=== PATIENT | male | born 1990 | race Caucasian/White ===

== ENCOUNTER → 2016-12-05 | Outpatient (CLI) | payer OTHER ==
[~2016-12-05] MED LIST: OMEP40CA5 PO
--- NOTE | 2016-12-05 09:31 | RAD ---
Abdominal ultrasound, 12/05/2016: History: Abdominal pain The gallbladder is within normal limits in size. There is no sonographic evidence of cholelithiasis. Its rojas are at the upper limits of normal in thickness. No bile duct dilatation is seen. The visualized portions of liver, pancreas, spleen and both kidneys are unremarkable. The abdominal aorta and inferior vena cava show no abnormality. No free fluid is evident in the abdomen. IMPRESSION: No significant abnormality is detected.
== END | disposition home or self-care (01) ==
LOC: US 08:46
PROVIDERS: ATTEND Nurse Practitioner Family
DX: R10.9 Unspecified abdominal pain (principal)
CPT/HCPCS: 76700

== ENCOUNTER → 2016-12-18 | Outpatient (CLI) | payer OTHER ==
[~2016-12-18] MED LIST changes: +IOHEXOL 240 MG/ML 50ML VIAL. ONE; +IOHEXOL 300 MG/ML 75 ML VIAL. IV ONE
--- NOTE | 2016-12-18 12:24 | RAD ---
CT scan of the abdomen and pelvis with contrast 07/18/2016 Clinical history: Epigastric pain for several weeks. Technique: After the oral and intravenous administration of contrast, contiguous, 5 mm axial sections were obtained to the pelvis. 75 cc of Omnipaque 300 were administered intravenously during this examination. One or more of the following individualized dose reduction techniques were utilized for this study: 1. Automated exposure control. 2. Adjustment of the mA and/or kV according to patient size. 3. Use of iterative reconstruction technique. Findings: Comparison is made to the patient's ultrasound of the abdomen dated 12/03/2016. Images through the lung bases are within normal limits. The liver parenchyma has a decreased attenuation consistent with mild fatty infiltration. The spleen, pancreas, adrenal glands and kidneys are within normal limits. The abdominal aorta tapers normally. The gallbladder is well-distended. No free fluid or free air is seen within the abdomen. There is no evidence of bowel obstruction. The appendix is well visualized and is within normal limits. Images through the pelvis demonstrate the urinary bladder to be slightly contracted. No free fluid is seen. Minimal S shaped curvature of the thoracolumbar spine is noted. Impression: No acute abnormality is seen.
== END | disposition home or self-care (01) ==
LOC: CT 08:31
PROVIDERS: ATTEND Nurse Practitioner Family
DX: K82.8 Other specified diseases of gallbladder (principal); N32.89 Other specified disorders of bladder; R10.13 Epigastric pain; M43.8X5 Other specified deforming dorsopathies, thoracolumbar region
CPT/HCPCS: 74177; Q9966; Q9967